=== PATIENT | female | born 1965 | race Caucasian/White ===

== ENCOUNTER 2017-01-29 21:12 | Emergency (ER) | payer OTHER ==
[~2017-01-29] VITALS: Ht 160 cm; Wt 104.1 kg
[~2017-01-29 21:12] MED LIST: ALBINS/ INH; VITACAP26 PO; VNTHFA/IN INH
[2017-01-29 21:23] VITALS: PULSE 90; TEMP 36.6; Ht 160 cm; Wt 104.1 kg
[2017-01-29] MEDS ORDERED: ALBUT/IPRATROP 3MG/0.5MG NEB 3 ML VIAL ONE (21:38)
--- NOTE | 2017-01-29 21:52 | DIAGNOSTIC IMAGING REPORT ---
CHEST ONE VIEW PORTABLE CLINICAL HISTORY: Wheezing. COMPARISON STUDY: April 04, 2016 FINDINGS: The cardiac and mediastinal contours are normal. There is no evidence of focal pulmonary consolidation. There is no evidence of failure. No pleural effusions are visualized.[ An opacity at the level of the right cardiophrenic angle, likely represents a fat pad. IMPRESSION: No active disease in the chest. Electronically signed by: Kenny Cloud M.D. 01/29/2017 9:50 PM Dictated Date/Time: 01/29/2017 9:49 PM
[2017-01-29] MEDS ORDERED: ALBUT/IPRATROP 3MG/0.5MG NEB 3 ML VIAL INH STA (22:04)
[2017-01-29 22:43] VITALS: BP 143/71; O2SAT 98
[2017-01-29] MEDS ORDERED: PRED20TA PO (22:51)
[2017-01-29] MEDS ORDERED: LEVO1TAB35 PO (22:51)
--- NOTE | 2017-01-30 00:04 | EMERGENCY ROOM VISIT NOTE ---
History Report prepared by Faraz: Oj Francois Under the Supervision of: Dr. Edward Sequeira M.D. First contact with patient: 21:41 Chief Complaint: COUGH Stated Complaint: WHEEZING - FEVER - COUGHING Nursing Triage Summary: pt reports using neb treatments at home with little to no releif History of Present Illness The patient is a 51 year old female with a history of asthma who presents to the Emergency Room with complaints of persistent coughing throughout the day. She has felt subjectively febrile today as well. The cough is nonproductive. The patient has been hospitalized for breathing difficulties before. She had pneumonia last year. The patient has not had an asthma or bronchitis flare up in a while. The patient has been on Prednisone before. The patient has a nebulizer at home, which she used three times today. She also has an inhaler. She is a smoker. Source of History: patient Onset: today Position: other (respiratory) Quality: other (nonproductive cough) Timing: other (persistent) Associated Symptoms: + fevers Review of Systems See HPI for pertinent positives & negatives. A total of 10 systems reviewed and were otherwise negative. Past Medical & Surgical Medical Problems: (1) SIRS (systemic inflammatory response syndrome) Family History No pertinent family history Social History Smoking Status: Current Every Day Smoker Alcohol Use: none Drug Use: none Housing Status: lives with family Current/Historical Medications Scheduled Levofloxacin (Levaquin), 750 MG PO QD@08 Prednisone (Prednisone), 0 PO DAILY Scheduled PRN Albuterol Hfa (Ventolin Hfa), 2-4 PUFFS INH Q6H PRN for SOB/Wheezing Albuterol Sulf (Proventil 0.083% 2.5MG/3ML), 2.5 MG INH QID PRN for SOB/Wheezing Allergies Coded Allergies: BEE STING (Verified Allergy, Severe, ANAPHYLAXIS, 01/29/17) Sulfa Antibiotics (Verified Allergy, Severe, ANAPHYLAXIS, 01/29/17) Aspirin (Verified Allergy, Mild, bleeding, 01/29/17) Ibuprofen (Verified Allergy, Mild, bleeding, 01/29/17) Indomethacin (Verified Allergy, Mild, unknown, 01/29/17) Morphine (Verified Allergy, Mild, HIVES, 01/29/17) Penicillins (Verified Allergy, Mild, CONVULSIONS, 01/29/17) Adhesives (Verified Allergy, Unknown, ITCHING AND RASH, 01/29/17) Cephalexin (Verified Allergy, Unknown, HIVES, 01/29/17) Erythromycin (Verified Allergy, Unknown, HIVES, 01/29/17) Uncoded Allergies: LEYDA TREE (Allergy, Unknown, ASTHMA ATTACK - BAD WHEEZING AND HIVES, 07/25/16) GOLD JEWELRY (Allergy, Unknown, ITCHING AND RASH, 07/25/16) Physical Exam Vital Signs Date Time Temp Pulse Resp B/P (MAP) Pulse Ox O2 Delivery O2 Flow Rate FiO2 01/29/17 22:43 143/71 98 01/29/17 21:40 97 Room Air 01/29/17 21:23 36.6 90 18 139/85 97 Room Air Physical Exam GENERAL: Patient is in no acute distress. HEENT: No acute trauma, normocephalic atraumatic, mucous membranes moist, no nasal congestion, no scleral icterus. NECK: No stridor, no adenopathy, no meningismus, trachea is midline. LUNGS: Diminished breath sounds bilaterally, breath sounds re equal, scattered wheezing heard. HEART: Without murmurs gallops or rubs, regular rate and rhythm. ABDOMEN: Soft, nontender, bowel sounds positive, no hernias, no peritonitis. EXTREMITIES: No cyanosis, mild bilateral pedal edema, full range of motion of all the joints without pain or difficulty, no signs for acute trauma. NEUROLOGIC: Oriented x 3, no acute motor or sensory deficits, no focal weakness. SKIN: No rash, no jaundice, no diaphoresis. Medical Decision & Procedures ER Provider Diagnostic Interpretation: X-ray results as stated below per interpretation by me and the radiologist: CHEST ONE VIEW PORTABLE CLINICAL HISTORY: Wheezing. COMPARISON STUDY: April 04, 2016 FINDINGS: The cardiac and mediastinal contours are normal. There is no evidence of focal pulmonary consolidation. There is no evidence of failure. No pleural effusions are visualized.[ An opacity at the level of the right cardiophrenic angle, likely represents a fat pad. IMPRESSION: No active disease in the chest. Electronically signed by: Kenny Cloud M.D. 01/29/2017 9:50 PM Dictated Date/Time: 01/29/2017 9:49 PM Medications Administered Medications (Trade) Dose Ordered Sig/Jeremy Route Start Time Stop Time Status Last Admin Dose Admin Albuterol/ Ipratropium (Duoneb) 3 ml STK-MED ONCE .ROUTE 01/29/17 21:38 01/29/17 21:39 DC 01/29/17 21:38 3 ML Prednisone (PredniSONE TAB) 60 mg NOW STAT PO 01/29/17 21:47 01/29/17 21:48 DC 01/29/17 21:47 60 MG Albuterol/ Ipratropium (Duoneb) 3 ml NOW STAT INH 01/29/17 22:04 01/29/17 22:05 DC 01/29/17 22:04 3 ML ED Course 2144: The patient was evaluated in room A3. A complete history and physical exam was performed. 2146: Prednisone 60 mg PO. 2203: DuoNeb 3 ml INH. 2244: Reassessed the patient. She is feeling good and is ready to go home. Discussed the discharge instructions. She verbalized understanding and agreement. The patient is ready for discharge. Medical Decision Differential diagnosis includes pneumonia or bronchitis, exacerbation of asthma and/or COPD, pneumothorax, CHF. Blood Pressure Screening: Patient was found to have an elevated blood pressure and was referred to their primary doctor for recheck and further treatment. Medication Reconciliation: I attest that I have personally reviewed the patient' s current medication list. The patient presents with a cough and some shortness of breath. She has asthma/ COPD. Chest film does not show pneumonia, she was wheezing slightly on exam. Patient was given 2 DuoNebs, oral prednisone. She is not hypoxic, she is not toxic. She is being discharged home. She will be on a prednisone taper, albuterol frequently. I did give her a prescription for Levaquin to start if she is not improving in a few days or if she starts to feel worse. The patient was encouraged to follow with her doctors office. Impression Primary Impression: Acute bronchitis Additional Impression: Asthma exacerbation Scribe Attestation The scribe's documentation has been prepared under my direction and personally reviewed by me in its entirety. I confirm that the note above accurately reflects all work, treatment, procedures, and medical decision making performed by me. Departure Information Dispostion Home / Self-Care Prescriptions Prednisone (Prednisone) 20 Mg Tab 0 PO DAILY, #14 TAB 3 TABS DAILY FOR 2 DAYS, THEN 2 TABS DAILY FOR 2 DAYS, THEN 1 TAB DAILY FOR 2 DAYS, THEN 1/2 TAB DAILY FOR 2 DAYS. Prov: Feese, Edward J.,M.D. 01/29/17 Levofloxacin (Levaquin) 750 Mg Tab 750 MG PO QD@08, #5 TAB Prov: Edward Sequeira M.D. 01/29/17 Referrals Ingris Hernandez (PCP) Forms HOME CARE DOCUMENTATION FORM, IMPORTANT VISIT INFORMATION Patient Instructions [facility] Additional Instructions prednisone as directed albuterol neb or inhaler every 4 hours start the Levaquin if not improving or worsening rest stay well hydrated return if worsening or feeling more short of breath Problem Qualifiers Primary Impression: Acute bronchitis Bronchitis organism: unspecified organism Qualified Codes: J20.9 - Acute bronchitis, unspecified
== END 2017-01-29 23:14 | disposition home or self-care (01) ==
LOC: C.EDB 21:13 → C.EDA 23:14
DX: J45.901 Unspecified asthma with (acute) exacerbation (principal); J20.9 Acute bronchitis, unspecified; Z87.01 Personal history of pneumonia (recurrent); F17.210 Nicotine dependence, cigarettes, uncomplicated

== ENCOUNTER → 2017-12-19 | Outpatient (CLI) | payer OTHER ==
[~2017-12-19] MED LIST changes: -VITACAP26 PO
--- NOTE | 2017-12-19 14:28 | DIAGNOSTIC IMAGING REPORT ---
CHEST 2 VIEWS ROUTINE CLINICAL HISTORY: 52 years-old Female presenting with L52, J44.1, R50.9, Z86.2 asthma. TECHNIQUE: PA and lateral views of the chest were obtained. COMPARISON: 01/29/2017. FINDINGS: Cardiomediastinal silhouette normal. Linear opacity in the right midlung. Heterogeneity of lung parenchyma. Lungs and pleural spaces otherwise clear. Osseous structures normal. Upper abdomen normal. IMPRESSION: 1. Minimal right midlung opacity likely atelectasis or scarring. No convincing evidence of acute cardiopulmonary disease. 2. Heterogeneity likely implies underlying emphysema. No focal infiltrate. Electronically signed by: Darius Johnson M.D. 12/19/2017 2:26 PM Dictated Date/Time: 12/19/2017 2:24 PM
[2017-12-19 14:39] LABS: BASO % 0.3 %; BASO ABS # 0.03 K/uL (0-0.2); EOS % 1.5 %; EOS ABS # 0.14 K/uL (0-0.5); HEMATOCRIT 41.3 % (37-47); HEMOGLOBIN 13.5 g/dL (12.0-16.0); IG# 0.01 K/uL (0.00-0.02); LYMPH % 36.7 %; LYMPH ABS # 3.34 K/uL (1.2-3.4); MEAN CELL VOLUME 90.6 fL (80-100); MEAN CORPUSCULAR HEMOGLOBIN 29.6 pg (25-34); MEAN CORPUSCULAR HGB CONC 32.7 g/dl (32-36); MEAN PLATELET VOLUME 10.1 fL (7.4-10.4); MONO % 5.6 %; MONO ABS # 0.51 K/uL (0.11-0.59); NEUT % 55.8 %; NEUT ABS # 5.06 K/uL (1.4-6.5); PLATELET COUNT 355 K/uL (130-400); RED CELL DISTRIBUTION WIDTH SD 43.3 fL (36.4-46.3); WHITE BLOOD COUNT 9.09 K/uL (4.8-10.8)
[2017-12-19 15:04] LABS: ALBUMIN 3.5 gm/dl (3.4-5.0); ALT/SGPT 23 U/L (12-78); AST/SGOT 12 U/L (15-37); BLOOD UREA NITROGEN 14 mg/dl (7-18); CALCIUM 8.6 mg/dl (8.5-10.1); CARBON DIOXIDE 28 mmol/L (21-32); CREATININE 0.98 mg/dl (0.60-1.20); GLUCOSE 98 mg/dl (70-99); POTASSIUM 4.2 mmol/L (3.5-5.1); SODIUM 141 mmol/L (136-145)
[2017-12-19 15:14] LABS: ALKALINE PHOSPHATASE 133 U/L (45-117); TOTAL PROTEIN 7.4 gm/dl (6.4-8.2)
== END | disposition home or self-care (01) ==
LOC: C.LAB 13:46
PROVIDERS: ATTEND Nurse Practitioner Family
DX: L52 Erythema nodosum (principal); J44.1 Chronic obstructive pulmonary disease with (acute) exacerbation; R50.9 Fever, unspecified; Z86.2 Personal history of diseases of the blood and blood-forming organs and certain disorders involving the immune mechanism; R53.83 Other fatigue; Z20.818 Contact with and (suspected) exposure to other bacterial communicable diseases